=== PATIENT | male | born 1970 | race Caucasian/White ===

== ENCOUNTER 2022-12-24 17:00 | Outpatient (RCR) | payer BC, SELFPAY | END 2023-02-21 08:47 | disposition home or self-care (01) | PROVIDERS: PCP Family Medicine; Visit Provider Student in an Organized Health Care Education/Training Program | DX: M25.511 Pain in right shoulder (principal); G89.29 Other chronic pain; M41.9 Scoliosis, unspecified; R10.12 Left upper quadrant pain; R53.1 Weakness; Z51.89 Encounter for other specified aftercare | CPT/HCPCS: 97110; 97140; 97161 ==

== ENCOUNTER 2024-09-30 10:45 | Outpatient (RCR) | payer BC, SELFPAY | END 2024-12-28 09:04 | disposition home or self-care (01) | PROVIDERS: PCP Family Medicine; Visit Provider Student in an Organized Health Care Education/Training Program | DX: S46.911D Strain of unspecified muscle, fascia and tendon at shoulder and upper arm level, right arm, subsequent encounter (principal); Z51.89 Encounter for other specified aftercare | CPT/HCPCS: 97110; 97140; 97161 ==